=== PATIENT | male | born 1990 | race Two or more races ===

== ENCOUNTER 2022-02-20 10:00 | Emergency (ER) | payer SELFPAY ==
[2022-02-20 10:20] VITALS: BP 153/91; PULSE 83; RESP 14; TEMP 36.8; O2SAT 99; BMI 29.1
[2022-02-20 11:32] LABS: Basophils Absolute Auto 0.01 K/uL (0.00-0.30); Basophils Percent Auto 0.1 % (0.0-3.0); Eosinophils Absolute Auto 0.09 K/uL (0.00-0.50); Eosinophils Percent Auto 1.3 % (0.0-7.0); Hematocrit 44.4 % (37.0-53.0); Hemoglobin* 14.8 gm/dL (13.5-17.5); Lymphocytes Absolute Auto 1.42 K/uL (0.90-2.90); Lymphocytes Percent Auto 20.5 % (20-44); Mean Corpuscular HGB Conc 33 gm/dL (32-36); Mean Corpuscular Hemoglobin 29 pg (26-34); Mean Corpuscular Volume 86 fL (80-100); Monocytes Percent Auto 8.8 % (0.0-11.0); Neutrophils Absolute Auto 4.81 K/uL (1.7-7.0); Neutrophils Percent Auto 69.3 % (42.0-72.0); Platelet Count* 234 K/uL (140-440); RDW Coefficient of Variation % 12.7 % (11.5-15.5); Red Blood Count 5.19 m/uL (4.30-5.90); White Blood Count* 6.94 K/uL (4.50-11.00)
[2022-02-20 11:34] LABS: Lactate* 1.2 mmol/L (0.5-1.9)
--- NOTE | 2022-02-20 11:39 | ED.GENADULT ---
HPI - General Adult General Chief complaint: Abdominal Pain Stated complaint: Upper right abdominal pain Time Seen by Provider: 02/20/22 10:03 Source: patient Mode of arrival: ambulatory Limitations: no limitations History of Present Illness HPI narrative: Generally healthy 31-year-old male coming in today complaining of abdominal pain that started this morning. Pain is located in the epigastric region does not radiate. Nothing makes it better or worse. He has not eaten anything this morning. He denies any vomiting, fevers or chills. No diarrhea or constipation. No urinary symptoms. Patient does state that he drinks 2 or 3 times per week, drinks ?a lot each time?. States that he has had bilateral inguinal hernia repair, no other intra-abdominal surgeries. Does not take any medications. Related Data Previous Rx's Medication Instructions Recorded cyclobenzaprine 10 mg tablet 10 mg PO .hs #30 tabs 10/14/21 naproxen 500 mg tablet 500 mg PO BID #60 tabs 10/14/21 Allergies Allergy/AdvReac Type Severity Reaction Status Date / Time No Known Allergies Allergy Unverified 10/14/21 13:22 Review of Systems Status of ROS: Reports: 10 or more systems reviewed and unremarkable except as noted in History and below PFSH [facility] Surgical History History of hernia repair Social History Smoking Status: Never smoker How often do you have a drink containing alcohol: never AUDIT-C Alcohol total score: 0 Non-prescribed substance use: denies use Exam Narrative: Exam Narrative: Well-nourished well-developed patient in no acute distress. Alert and oriented. Answers questions appropriately. Mood and affect are appropriate. Thoughts are goal oriented and rational. No tangential or magical thinking noted. Patient speaks in full sentences without needing to catch their breath. HEENT: Normocephalic atraumatic. Pupils are equally round reactive to light. Extraocular muscles are intact. Conjunctivae are moist without any icterus noted. Moist mucous membranes. Posterior pharynx is normal. Neck is soft without any lymphadenopathy or thyromegaly. No masses are appreciated. Cardiovascular: Heart is regular rate and rhythm S1 and S2 are present without any murmurs. Lungs: Clear to auscultation bilaterally no wheezes rhonchi or rales are appreciated. Patient takes deep breaths without any discomfort. Abdomen: Soft and nondistended with normal bowel sounds. Negative Treviño sign. He has tenderness in the epigastric region but no where else. No masses are appreciated. Extremities: Bilateral lower extremities are without edema. Normal DP and PT pulses. Skin: Well perfused without any obvious rashes. Const: Vital Signs, click to edit/add: Vital Signs - 24 hr 02/20/22 10:20 Temperature 98.2 F Pulse Rate [Pulse Oximeter] 83 Respiratory Rate 14 Blood Pressure [Ri ght Upper Arm] 153/91 H Pulse Oximetry 99 Oxygen Delivery Me thod Room Air Course Course Hospital Course: Lab work was unremarkable. Patient's pain did lessen while he was here. I did give him a dose of Carafate and that helped even more. Vital Signs Vital signs: Initial Vital Signs Temperature 98.2 F 02/20/22 10:20 Temperature Source Temporal Artery Scan 02/20/22 10:20 Pulse Rate 83 02/20/22 10:20 Pulse Rhythm 02/20/22 10:20 Respiratory Rate 14 02/20/22 10:20 Blood Pressure 153/91 H 02/20/22 10:20 Blood Pressure Mean 111 02/20/22 10:20 Blood Pressure Position Sitting 02/20/22 10:20 Pulse Oximetry 99 02/20/22 10:20 Oxygen Delivery Method 02/20/22 10:20 Vital Signs Temperature 98.2 F 02/20/22 10:20 Pulse Rate 83 02/20/22 10:20 Respiratory Rate 14 02/20/22 10:20 Blood Pressure 153/91 H 02/20/22 10:20 Pulse Oximetry 99 02/20/22 10:20 Oxygen Delivery Method 02/20/22 10:20 Temperature 98.2 F 02/20/22 10:20 Pulse Rate 83 02/20/22 10:20 Respiratory Rate 14 02/20/22 10:20 Blood Pressure 153/91 H 02/20/22 10:20 Pulse Oximetry 99 02/20/22 10:20 Oxygen Delivery Method 02/20/22 10:20 Medical Decision Making MDM Narrative Medical decision making narrative: 31-year-old male with epigastric abdominal pain, likely gastritis. Discussed the possibility of pancreatitis or cholecystitis, however without any lab abnormalities to back that up I think gastritis is the most likely diagnosis. We discussed cutting back on alcohol intake, caffeine and spicy food. We discussed daily omeprazole. Follow-up in a month. patient was agreeable had no other questions. Lab Data Lab results reviewed: Yes I reviewed the patient's lab results Labs: Lab Results 02/20/22 02/20/22 02/20/22 Range/Units 11:25 11:25 11:25 WBC 6.94 (4.50-11.00) K/uL RBC 5.19 (4.30-5.90) m/uL Hgb 14.8 (13.5-17.5) gm/dL Hct 44.4 (37.0-53.0) % MCV 86 (80-100) fL MCH 29 (26-34) pg MCHC 33 (32-36) gm/dL RDW Coeff of Jacques 12.7 (11.5-15.5) % Plt Count 234 (140-440) K/uL Neut % (Auto) 69.3 (42.0-72.0) % Lymph % (Auto) 20.5 (20-44) % Dawes % (Auto) 8.8 (0.0-11.0) % Eos % (Auto) 1.3 (0.0-7.0) % Baso % (Auto) 0.1 (0.0-3.0) % Neut # (Auto) 4.81 (1.7-7.0) K/uL Lymph # (Auto) 1.42 (0.90-2.90) K/uL Dawes # (Auto) 0.60 (0.00-0.90) K/UL Eos # (Auto) 0.09 (0.00-0.50) K/uL Baso # (Auto) 0.01 (0.00-0.30) K/uL Abs Immat Gran (auto) 0.00 (0.00-0.30) K/uL Imm/Tot Granulo (auto) 0.0 % ESR 2 (2-15) mm/hr Sodium 140 (135-149) mmol/L Potassium 4.6 (3.6-5.1) mmol/L Chloride 106 (96-114) mmol/L Carbon Dioxide 27 (20-32) mmol/L BUN 12 (5-24) mg/dL Creatinine 0.7 (0.5-1.5) mg/dL Estimated Creat Clear 130.57 Estimated GFR 125 ml/min Glucose 88 (60-115) mg/dL Lactate (0.5-1.9) mmol/L Calcium 9.4 (8.4-10.6) mg/dL Total Bilirubin 0.5 (0.1-1.5) mg/dL Direct Bilirubin 0.2 (0.0-0.5) mg/dL AST 33 (12-35) U/L ALT 37 (4-50) U/L Alkaline Phosphatase 88 (40-150) U/L C-Reactive Protein < 0.5 L (0.5-1.0) mg/dL Total Protein 8.0 (6.0-8.3) g/dL Albumin 4.8 (3.3-5.0) g/dL Lipase 41 (23-300) U/L Ethyl Alcohol < 0.01 L (0.01-0.03) % 02/20/ Range/Units 11:25 WBC (4.50-11.00) K/uL RBC (4.30-5.90) m/uL Hgb (13.5-17.5) gm/dL Hct (37.0-53.0) % MCV (80-100) fL MCH (26-34) pg MCHC (32-36) gm/dL RDW Coeff of Jacques (11.5-15.5) % Plt Count (140-440) K/uL Neut % (Auto) (42.0-72.0) % Lymph % (Auto) (20-44) % Dawes % (Auto) (0.0-11.0) % Eos % (Auto) (0.0-7.0) % Baso % (Auto) (0.0-3.0) % Neut # (Auto) (1.7-7.0) K/uL Lymph # (Auto) (0.90-2.90) K/uL Dawes # (Auto) (0.00-0.90) K/UL Eos # (Auto) (0.00-0.50) K/uL Baso # (Auto) (0.00-0.30) K/uL Abs Immat Gran (auto) (0.00-0.30) K/uL Imm/Tot Granulo (auto) % ESR (2-15) mm/hr Sodium (135-149) mmol/L Potassium (3.6-5.1) mmol/L Chloride (96-114) mmol/L Carbon Dioxide (20-32) mmol/L BUN (5-24) mg/dL Creatinine (0.5-1.5) mg/dL Estimated Creat Clear Estimated GFR ml/min Glucose (60-115) mg/dL Lactate 1.2 (0.5-1.9) mmol/L Calcium (8.4-10.6) mg/dL Total Bilirubin (0.1-1.5) mg/dL Direct Bilirubin (0.0-0.5) mg/dL AST (12-35) U/L ALT (4-50) U/L Alkaline Phosphatase (40-150) U/L C-Reactive Protein (0.5-1.0) mg/dL Total Protein (6.0-8.3) g/dL Albumin (3.3-5.0) g/dL Lipase (23-300) U/L Ethyl Alcohol (0.01-0.03) % Discharge Plan Discharge Clinical Impression: Gastritis Patient Disposition: Home, Self-Care Condition: Improved Additional Instructions: Start daily omeprazole 20 mg - you can purchase this [id number]. Take for 1 month. Follow-up with your primary care provider in 1 month. Avoid alcohol, caffeine, spicy food. Return to the ER if you are getting worse instead of better. Expect pain to continue for several more days before you start to see a difference. Prescriptions: No Action cyclobenzaprine 10 mg tablet 10 mg PO .hs Qty: 30 1RF naproxen 500 mg tablet 500 mg PO BID Qty: 60 1RF Follow Up/Referrals: Ander Blair MD [Primary Care Provider] - Stand Alone Forms: Skin Scan Info Instructions
[2022-02-20 11:49] LABS: Slide Review Reflex No
[2022-02-20 12:12] LABS: Albumin* 4.8 g/dL (3.3-5.0); Chloride* 106 mmol/L (96-114); Sodium* 140 mmol/L (135-149)
[2022-02-20 12:13] LABS: Potassium* 4.6 mmol/L (3.6-5.1)
[2022-02-20 12:15] LABS: Alkaline Phosphatase* 88 U/L (40-150); Aspartate Amino Transferase* 33 U/L (12-35); Bilirubin Direct* 0.2 mg/dL (0.0-0.5); Bilirubin Total* 0.5 mg/dL (0.1-1.5); Blood Urea Nitrogen* 12 mg/dL (5-24); Carbon Dioxide* 27 mmol/L (20-32); Creatinine* 0.7 mg/dL (0.5-1.5); Est. Creatinine Clearance* 130.57; Estimated Glomerular Filt Rate 125 ml/min
[2022-02-20 12:16] LABS: Alanine Aminotransferase* 37 U/L (4-50); Calcium* 9.4 mg/dL (8.4-10.6); Glucose* 88 mg/dL (60-115); Lipase* 41 U/L (23-300)
[2022-02-20 12:18] LABS: C Reactive Protein* < 0.5 mg/dL (0.5-1.0); Ethanol* < 0.01 % (0.01-0.03)
[2022-02-20 12:33] LABS: Erythrocyte SedimentationRate* 2 mm/hr (2-15)
[2022-02-20] MEDS: SUCRALFATE 1 GM TABLET PO (13:00)
[2022-02-20 13:50] VITALS: BP 153/91; PULSE 83; RESP 14; TEMP 36.8
== END 2022-02-20 13:50 | disposition home or self-care (01) ==
PROVIDERS: Emergency Provider Family Medicine; PCP Family Medicine
DX: K29.70 Gastritis, unspecified, without bleeding (principal)
CPT/HCPCS: 36415; 80048; 80076; 82077; 83605; 83690; 85025; 85651; 86140; 99283; 99284; A9270